=== PATIENT | female | born 1970 | race African-American/Black ===

== ENCOUNTER 2018-09-14 15:01 | Inpatient (IN) | payer OTHER ==
[2018-09-14 17:20] VITALS: BMI 27.4
--- NOTE | 2018-09-14 18:33 | HP ---
CIWA Score Nausea/Vomitin-Mild Nausea/No Vomiting Muscle Tremors: 2 Anxiety: 3 Agitation: 1-Slight > Activity Paroxysmal Sweats: 2 Orientation: 0-Oriented Tacttile Disturbances: 2-Mild Itch/Numbness/Burn Auditory Disturbances: 0-None Visual Disturbances: 0-None Headache: 2-Mild CIWA-Ar Total Score: 13 - Admission Criteria [facility]ASAS Guidelines: Admission for Medically Managed Detox: Requires at least one of the followin. CIWA greater than 12 2. Seizures within the past 24 hours 3. Delirium tremens within the past 24 hours 4. Hallucinations within the past 24 hours 5. Acute intervention needed for co occurring medical disorder 6. Acute intervention needed for co occurring psychiatric disorder 7. Severe withdrawal that cannot be handled at a lower level of care (continued vomiting, continued diarrhea, abnormal vital signs) requiring intravenous medication and/or fluids 8. Admission ROS [facility] Chief Complaint: WITHDRAWAL SYMPTOMS Allergies/Adverse Reactions: Allergies Allergy/AdvReac Type Severity Reaction Status Date / Time No Known Drug Allergies Allergy Verified 09/14/18 17:36 History of Present Illness: 48 Y.O. WOMAN WITH AN EXTENSIVE HISTORY OF ALCOHOL, MARIJUANA AND PCP DEPENDENCE IS HERE SEEKING HER FIRST ADMISSION TO DETOX. DOES NOT HAVE A SIGNIFICANT PERIOD OF SOBRIETY. Exam Limitations: No Limitations - Ebola screening Have you traveled outside of the country in the last 21 days: No Have you had contact with anyone from an Ebola affected area: No Have you been sick,other than usual withdrawal symptoms: No - Review of Systems Constitutional: Diaphoresis, Night Sweats EENT: reports: Nose Congestion Respiratory: reports: No Symptoms reported Cardiac: reports: No Symptoms Reported GI: reports: Nausea : reports: No Symptoms Reported Musculoskeletal: reports: Back Pain Integumentary: reports: No Symptoms Reported Neuro: reports: Numbness (LEFT HAND), Tremors Endocrine: reports: No Symptoms Reported Hematology: reports: No Symptoms Reported Psychiatric: reports: Orientated x3, Depressed Other Systems: Reviewed and Negative Patient History - Patient Medical History Hx Anemia: No Hx Asthma: No Hx Chronic Obstructive Pulmonary Disease (COPD): No Hx Cancer: No Hx Cardiac Disorders: No Hx Congestive Heart Failure: No Hx Hypertension: No Hx Hypercholesterolemia: No Hx Pacemaker: No HX Cerebrovascular Accident: No Hx Seizures: No Hx Dementia: No Hx Diabetes: No Hx Gastrointestinal Disorders: No Hx Liver Disease: No Hx Genitourinary Disorders: No Hx Sexually Transmitted Disorders: No Hx Renal Disease (ESRD): No Hx Thyroid Disease: No Hx Human Immunodeficiency Virus (HIV): No Hx Hepatitis C: No Hx Depression: Yes Hx Suicide Attempt: Yes (Tried to jump off the bridge 2017) Hx Bipolar Disorder: No Hx Schizophrenia: No - Patient Surgical History Past Surgical History: No Hx Neurologic Surgery: No Hx Cataract Extraction: No Hx Cardiac Surgery: No Hx Lung Surgery: No Hx Breast Surgery: No Hx Breast Biopsy: No Hx Abdominal Surgery: No Hx Appendectomy: No Hx Cholecystectomy: No Hx Genitourinary Surgery: No Hx Section: No Hx Orthopedic Surgery: No Anesthesia Reaction: No - PPD History Previous Implant?: Yes Documented Results: Negative w/o proof PPD to be Administered?: Yes - Reproductive History Patient is a Female of Child Bearing Age (11 -55 yrs old): Yes LMP comment: 08/24/2018 Patient : No - Smoking Cessation Smoking history: Never smoked Have you smoked in the past 12 months: No Initiated information on smoking cessation: No 'Breaking Loose' booklet given: 09/14/18 - Substance & Tx. History Hx Alcohol Use: Yes Hx Substance Use: Yes Substance Use Type: Alcohol, Marijuana Hx Substance Use Treatment: No - Substances Abused Alcohol Route: Oral Frequency: Daily Amount used: Liquor 5 pints Age of first use: 15 Date of Last Use: 09/14/18 Marijuana/Hashish Route: Smoking Frequency: Daily Amount used: 1 bag Age of first use: 15 Date of Last Use: 09/13/18 PCP Route: Smoking Frequency: Daily Amount used: 1-2 bags Age of first use: 20 Date of Last Use: 09/14/18 Family Disease History - Family Disease History Family History: Denies Admission Physical Exam S - Vital Signs Vital Signs: Vital Signs - 24 hr 09/14/18 17:17 Temperature 96.5 F L Pulse Rate 78 Respiratory 18 Rate Blood Pressure 136/85 - Physical General Appearance: Yes: Irritable, Anxious HEENTM: Yes: Hearing grossly Normal, Normocephalic, Normal Voice Respiratory: Yes: Chest Non-Tender, Lungs Clear, Normal Breath Sounds, No Respiratory Distress, No Accessory Muscle Use Neck: Yes: No masses,lesions,Nodules Breast: Yes: Breast Exam Deferred Cardiology: Yes: Regular Rhythm, Regular Rate Abdominal: Yes: Normal Bowel Sounds, Non Tender Genitourinary: Yes: Within Normal Limits (NO COMPLAINTS REPORTED) Back: Yes: Normal Inspection Musculoskeletal: Yes: full range of Motion, Gait Steady, Pelvis Stable Extremities: Yes: Within Normal Limits, Normal Inspection, Non-Tender Neurological: Yes: Fully Oriented, Alert, Normal Mood/Affect, Normal Response Integumentary: Yes: Normal Color, Dry, Warm Lymphatic: Yes: Within Normal Limits - Diagnostic (1) Alcohol dependence, uncomplicated Current Visit: Yes Status: Chronic (2) PCP dependence Current Visit: Yes Status: Chronic (3) Marijuana dependence Current Visit: Yes Status: Chronic Cleared for Admission [facility] - Detox or Rehab [facility] Level of Care: Medically Managed Detox Regimen/Protocol: Librium [facility] Breath Alcohol Content Breath Alcohol Content: 0 Urine Pregancy Test - Result Urine Test Results: Negative- NO Line Present Urine Drug Screen - Results Drug Screen Negative: Yes
[2018-09-14] MEDS ORDERED: LOPERAMIDE HCL 2 MG CAPSULE PO PRN (18:39)
[2018-09-14] MEDS ORDERED: ACETAMINOPHEN 325 MG TABLET (FP) PO PRN (18:39)
[2018-09-14] MEDS ORDERED: IBUPROFEN 400 MG TABLET (FP) PO PRN (18:39)
[2018-09-14] MEDS ORDERED: MAGNESIUM HYDROX 2400MG/30ML ORAL SUSPENSION 30 ML CUP PO PRN (18:39)
[2018-09-14] MEDS ORDERED: chlordiazePOXIDE HCL 25 MG CAPSULE PO PRN (18:39)
[2018-09-14] MEDS ORDERED: MAGNESIUM CITRATE 300 ML BOTTLE PO PRN (18:39)
[2018-09-14] MEDS ORDERED: guaiFENesin/D-METHORPHAN HB 10 ML UNIT-DOSE CUPS PO PRN (18:39)
[2018-09-14] MEDS ORDERED: MENTHOL/PHENOL 1 EACH UD MM PRN (18:39)
[2018-09-14] MEDS ORDERED: MAG HYDROX/AL HYDROX/SIMETH 30 ML UNIT-DOSE CUP PO PRN (18:39)
[2018-09-14] MEDS ORDERED: hydrOXYzine PAMOATE 50 MG CAPSULE (FP) PO PRN (18:39)
[2018-09-14] MEDS ORDERED: P-EPHED 60MG/TRIPROLIDI 2.5MG TABLET PO PRN (18:39)
[2018-09-14] MEDS ORDERED: MELATONIN 5 MG TABLETS PO PRN (22:00)
[2018-09-14] MEDS: chlordiazePOXIDE HCL 25 MG CAPSULE PO SCH (22:15)
[2018-09-14] MEDS: THIAMINE HCL 100 MG TABLET (FP) PO SCH (22:15)
[2018-09-15] MEDS: chlordiazePOXIDE HCL 25 MG CAPSULE PO SCH ×4 (06:02→22:31)
[2018-09-15 09:58] LABS: HEMATOCRIT 42.2 % (32.4-45.2); MCH 25.1 pg (25.7-33.7); MCHC 30.8 g/dl (32.0-36.0); MEAN CELL VOLUME 81.4 fl (80-96); MEAN PLT VOLUME 8.5 fl (7.5-11.1); PLATELET COUNT 162 K/MM3 (134-434); RBC 5.19 M/mm3 (3.60-5.2); RDW 15.6 % (11.6-15.6); WHITE BLOOD COUNT 2.9 K/mm3 (4.0-10.0)
[2018-09-15 10:34] LABS: ALBUMIN 3.3 g/dl (3.4-5.0); ALK PHOS 82 U/L (45-117); ANION GAP 6 MMOL/L (8-16); BILIRUBIN,TOTAL 0.4 mg/dL (0.2-1); BLOOD UREA NITROGEN 8 mg/dL (7-18); CALCIUM 8.7 mg/dL (8.5-10.1); CHLORIDE 106 mmol/L (98-107); CO2 30 mmol/L (21-32); CREATININE 0.8 mg/dL (0.55-1.3); GLUCOSE,RANDOM 82 mg/dL (74-106); POTASSIUM 3.8 mmol/L (3.5-5.1); SGOT/AST 13 U/L (15-37); SGPT/ALT 12 U/L (13-61); SODIUM 142 mmol/L (136-145); TOT PROT 6.4 g/dl (6.4-8.2)
[2018-09-15] MEDS: PRENATAL VITAMINS W/ FOLIC ACID TABLET (FP) PO SCH (10:51)
--- NOTE | 2018-09-15 12:56 | EKG ---
Test Reason : Blood Pressure : / mmHG Vent. Rate : 054 BPM Atrial Rate : 054 BPM P-R Int : 224 ms QRS Dur : 086 ms QT Int : 458 ms P-R-T Axes : 056 -10 024 degrees QTc Int : 434 ms SINUS BRADYCARDIA WITH 1ST DEGREE A-V BLOCK OTHERWISE NORMAL ECG NO PREVIOUS ECGS AVAILABLE Confirmed by LUL MCLAUGHLIN MD ([id number]) on 09/15/2018 12:56:15 PM Referred By: Confirmed By:LUL MCLAUGHLIN MD
--- NOTE | 2018-09-15 16:09 | PN ---
S CIWA - CIWA Score Nausea/Vomitin-No Nausea/No Vomiting Muscle Tremors: None Anxiety: 4-Mod. Anxious/Guarded Agitation: 4-Moderately Restless Paroxysmal Sweats: No Perspiration Orientation: 0-Oriented Tacttile Disturbances: 0-None Auditory Disturbances: 0-None Visual Disturbances: 0-None Headache: 2-Mild CIWA-Ar Total Score: 10 [facility] Progress Note (SOAP) Subjective: PATIENT C/O INTERRUPTED SLEEP, ANXIETY, IRRITABILITY AND RESTLESSNESS. Objective: 09/15/18 16:07 Vital Signs Temperature 97.5 F L 09/15/18 14:31 Pulse Rate 58 L 09/15/18 14:31 Respiratory Rate 18 09/15/18 14:31 Blood Pressure 111/58 L 09/15/18 14:31 O2 Sat by Pulse Oximetry (%) Laboratory Tests 09/15/18 09/15/18 09/15/18 07:00 07:00 07:00 WBC 2.9 L RBC 5.19 Hgb 13.0 Hct 42.2 MCV 81.4 MCH 25.1 L MCHC 30.8 L RDW 15.6 Plt Count 162 MPV 8.5 Sodium 142 Potassium 3.8 Chloride 106 Carbon Dioxide 30 Anion Gap 6 L BUN 8 Creatinine 0.8 Creat Clearance w eGFR > 60 Random Glucose 82 Calcium 8.7 Total Bilirubin 0.4 AST 13 L ALT 12 L Alkaline Phosphatase 82 Total Protein 6.4 Albumin 3.3 L RPR Titer HIV 1&2 Antibody Screen Negative HIV P24 Antigen Negative 09/15/18 07:00 WBC RBC Hgb Hct MCV MCH MCHC RDW Plt Count MPV Sodium Potassium Chloride Carbon Dioxide Anion Gap BUN Creatinine Creat Clearance w eGFR Random Glucose Calcium Total Bilirubin AST ALT Alkaline Phosphatase Total Protein Albumin RPR Titer Nonreactive HIV 1&2 Antibody Screen HIV P24 Antigen PE: ALERT AND ORIENTED X 3 SKIN WARM AND DRY NEURO CN 1-X11 GROSSLY INTACT, +PERRLA EXT FULL ROM, NO VISIBLE TREMORS +IRRITABILITY Assessment: 09/15/18 16:09 WITHDRAWAL SX Plan: CONTINUE DETOX ENCOURAGE ORAL FLUIDS CONTINUE TO MONITOR CLINICALLY
[2018-09-15] MEDS: THIAMINE HCL 100 MG TABLET (FP) PO SCH (22:31)
[2018-09-16] MEDS: chlordiazePOXIDE HCL 25 MG CAPSULE PO SCH ×3 (05:31→17:18)
[2018-09-16] MEDS: PRENATAL VITAMINS W/ FOLIC ACID TABLET (FP) PO SCH (10:04)
--- NOTE | 2018-09-16 13:59 | CONSULT ---
[facility] Psychiatric Consult - Data Date of interview: 09/16/18 Admission source: [facility] Identifying data: Patient is a 48 year old single female , mother of one, unemployed, and domiciled. This is patient's first admission to detox at [facility]. Patient admitted to for alcohol, PCP, amd marijuana dependence. Substance Abuse History: Smoking Cessation. Smoking history: Never smoked. Have you smoked in the past 12 months: No. Initiated information on smoking cessation: No. 'Breaking Loose' booklet given: 09/14/18. - Substance & Tx. History. Hx Alcohol Use: Yes. Hx Substance Use: Yes. Substance Use Type: Alcohol, Marijuana. Hx Substance Use Treatment: No. - Substances Abused. Alcohol. Route: Oral. Frequency: Daily. Amount used: Liquor 5 pints. Age of first use: 15. Date of Last Use: 09/14/18. Marijuana/Hashish. Route: Smoking. Frequency: Daily. Amount used: 1 bag. Age of first use: 15. Date of Last Use: 09/13/18. PCP. Route: Smoking. Frequency: Daily. Amount used : 1-2 bags. Age of first use: 20. Date of Last Use: Medical History: Denies. Endorses good health. Psychiatric History: Patient presents as irritable and agitated. Patient reports one psychiatric hospitalization at [facility] last year for depression. States she was receiving outpatient psychiatric care at a clinic in [place] but did not like the psychiatrist so she discontinued treatment. She denies taking medications at this time. Patient denies h/o psychotic symptoms although appears to be internally preoccupied. As per pharmacy claims patient has been prescribed risperdal 3mg daily. Most recent prescription was sent to patient's pharmacy on 06/23/18. Patient reports one suicide attempt in 2018 by jumping off a bridge but stated she was under the influence. She currently denies suicidal and homicidal ideation. Physical/Sexual Abuse/Trauma History: denies. Mental Status Exam - Mental Status Exam Alert and Oriented to: Time, Place, Person Cognitive Function: Good Patient Appearance: Well Groomed Mood: Irritable Affect: Constricted Patient Behavior: Agitated Speech Pattern: Clear Voice Loudness: Normal Thought Process: Thought Blocking (Denies, but appears to be internally preoccupied. ) Thought Disorder: Present Hallucinations: Denies Suicidal Ideation: Denies Homicidal Ideation: Denies Insight/Judgement: Poor Sleep: Fair Appetite: Fair Muscle strength/Tone: Normal Gait/Station: Normal Psychiatric Findings - Problem List ([place] 1, 2,3) (1) Schizophrenia Current Visit: No Status: Suspected (2) Substance induced mood disorder Current Visit: Yes Status: Acute (3) Alcohol dependence with uncomplicated withdrawal Current Visit: Yes Status: Acute (4) Marijuana dependence Current Visit: Yes Status: Chronic (5) PCP dependence Current Visit: Yes Status: Chronic - Initial Treatment Plan Initial Treatment Plan: Psychoeducation provided. Detoxification in progress. Observation. Patient refuses to resume medications. Denies accepting psychtropic medications.
[2018-09-16] MEDS: SENNOSIDES/DOCUSATE COMBO (SENNA PLUS) TABLET (UD) PO SCH ×2 (15:00→22:03)
--- NOTE | 2018-09-16 15:27 | PN ---
S CIWA - CIWA Score Nausea/Vomitin-No Nausea/No Vomiting Muscle Tremors: None Anxiety: 4-Mod. Anxious/Guarded Agitation: 0-Normal Activity Paroxysmal Sweats: 3 Orientation: 0-Oriented Tacttile Disturbances: 2-Mild Itch/Numbness/Burn Auditory Disturbances: 0-None Visual Disturbances: 0-None Headache: 3-Moderate CIWA-Ar Total Score: 12 S Progress Note (SOAP) Subjective: Stomach Cramping, Body Aches, Constipation, Anxious, H/A, Sweating. Objective: PATIENT A & O X 3, OBSERVED AMBULATING ON UNIT. IN NO ACUTE DISTRESS. 09/16/18 15:24 Vital Signs Temperature 96.4 F L 09/16/18 13:53 Pulse Rate 70 09/16/18 13:53 Respiratory Rate 18 09/16/18 13:53 Blood Pressure 117/70 09/16/18 13:53 O2 Sat by Pulse Oximetry (%) Laboratory Tests 09/15/18 09/15/18 09/15/18 07:00 07:00 07:00 WBC 2.9 L RBC 5.19 Hgb 13.0 Hct 42.2 MCV 81.4 MCH 25.1 L MCHC 30.8 L RDW 15.6 Plt Count 162 MPV 8.5 Sodium 142 Potassium 3.8 Chloride 106 Carbon Dioxide 30 Anion Gap 6 L BUN 8 Creatinine 0.8 Creat Clearance w eGFR > 60 Random Glucose 82 Calcium 8.7 Total Bilirubin 0.4 AST 13 L ALT 12 L Alkaline Phosphatase 82 Total Protein 6.4 Albumin 3.3 L RPR Titer Hep C Ab Diagnostic HIV 1&2 Antibody Screen Negative HIV P24 Antigen Negative 09/15/18 09/15/18 07:00 07:00 WBC RBC Hgb Hct MCV MCH MCHC RDW Plt Count MPV Sodium Potassium Chloride Carbon Dioxide Anion Gap BUN Creatinine Creat Clearance w eGFR Random Glucose Calcium Total Bilirubin AST ALT Alkaline Phosphatase Total Protein Albumin RPR Titer Nonreactive Hep C Ab Diagnostic 0.1 HIV 1&2 Antibody Screen HIV P24 Antigen LABS NOTED. Assessment: 09/16/18 15:24 WITHDRAWAL SYMPTOMS. LEUKOPENIA. 09/16/18 15:26 Plan: CONTINUE DETOX. INCREASE DAILY PO FLUID INTAKE. COLACE, SENNA FOR CONSTIPATION.
[2018-09-16] MEDS: THIAMINE HCL 100 MG TABLET (FP) PO SCH (22:03)
[2018-09-16 22:23] VITALS: BP 125/86; PULSE 94; TEMP 97.7
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
[2018-09-16] MEDS ORDERED: chlordiazePOXIDE 5 MG CAPSULE PO SCH (23:00)
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
--- NOTE | 2018-09-17 02:23 | HP ---
Psychiatrist Admission - Data Vital Signs: Vital Signs - 24 hr 09/16/18 09/16/18 09/16/18 03:30 06:56 09:46 Temperature 97.5 F L 97.3 F L Pulse Rate 59 L 78 Respiratory 18 18 16 Rate Blood Pressure 124/79 130/60 09/16/18 09/16/18 09/16/18 13:53 17:54 22:22 Temperature 96.4 F L 97.3 F L 97.7 F Pulse Rate 70 61 94 H Respiratory 18 18 19 Rate Blood Pressure 117/70 118/69 125/86 Allergies/Adverse Reactions: Allergies Allergy/AdvReac Type Severity Reaction Status Date / Time No Known Drug Allergies Allergy Verified 09/14/18 17:36 Psychiatric Findings - Problem List ([place] 1, 2,3) (1) Alcohol dependence with uncomplicated withdrawal Status: Chronic (2) Substance induced mood disorder Status: Chronic (3) Alcohol dependence, uncomplicated Status: Chronic (4) Marijuana dependence Status: Chronic (5) PCP dependence Status: Chronic (6) Schizophrenia Status: Chronic
--- NOTE | 2018-09-17 10:55 | PN ---
S Progress Note Note: Received call from the Nurse about patient"s disruptive,agressive behavior, threatening staff and other patients.Patient was transferred to ER of [facility] for safety,further evaluation,stabilization .
[2018-09-17] MEDS ORDERED: chlordiazePOXIDE HCL 10 MG CAPSULE PO SCH (23:00)
== END 2018-09-16 11:35 | DRG 775 ==
LOC: YASAS 15:01 → Y6N 18:38
PROC: HZ2ZZZZ Detoxification Services for Substance Abuse Treatment (ICD-10-PCS; principal; 2018-09-14)
DX: F10.230 Alcohol dependence with withdrawal, uncomplicated (principal); F12.20 Cannabis dependence, uncomplicated; F16.20 Hallucinogen dependence, uncomplicated; F19.24 Other psychoactive substance dependence with psychoactive substance-induced mood disorder; F20.9 Schizophrenia, unspecified; D72.819 Decreased white blood cell count, unspecified; Z91.5 Personal history of self-harm
CPT/HCPCS: 36415; 80053; 85027; 86593; 86803; 87389; 93005; 93010

== ENCOUNTER 2018-09-17 07:31 | Emergency (ER) | payer OTHER ==
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
[2018-09-17 07:55] VITALS: BP 130/76; PULSE 84; TEMP 98.2; BMI 26.6
--- NOTE | 2018-09-17 08:27 | PDOC ---
Attending Attestation - Resident Resident Name: Karen Barrios - ED Attending Attestation I have performed the following: I have examined & evaluated the patient, The case was reviewed & discussed with the resident, I agree w/resident's findings & plan, Exceptions are as noted - HPI HPI: 09/17/18 09:14 48yo F hx PSA presents to the ED from [facility] for med clearance prior to going back to [facility]. Pt has no medical complaints. Denies f/c, cp, sob, abd pain, headache, focal weakness/numbness, abd pain, LE edema. - Physicial Exam PE: 09/17/18 09:14 GENERAL: Awake, alert, and fully oriented, in no acute distress HEAD: No signs of trauma EYES: PERRLA, EOMI, sclera anicteric, conjunctiva clear ENT: Auricles normal inspection, hearing grossly normal, nares patent, oropharynx clear without exudates. Moist mucosa NECK: Normal ROM, supple, no lymphadenopathy, JVD, or masses LUNGS: Breath sounds equal, clear to auscultation bilaterally. No wheezes, and no crackles HEART: Regular rate and rhythm, normal S1 and S2, no murmurs, rubs or gallops ABDOMEN: Soft, nontender, normoactive bowel sounds. No guarding, no rebound. No masses EXTREMITIES: Normal range of motion, no edema. No clubbing or cyanosis. No cords, erythema, or tenderness NEUROLOGICAL: Normal speech, cranial nerves intact, negative pronator drift, 5/ 5 strength in all 4 extremities, normal sensation to light touch in all 4 extremities, normal cerebellar exam, normal gait, normal reflexes and tone SKIN: Warm, Dry, normal turgor, no rashes or lesions noted. - Medical Decision Making 09/17/18 08:25 48yo F presents to the ED for medical clearance from [facility] emergency department. Pt was at detox for PSA at [facility], was due to be transferred to a facility in the [place] for rehab. Yesterday, while at [facility], she became combative and made threats. She was sent to [facility] ED for psych clearance. Pt was cleared by psych and accepted back to [facility] by ANKUR Reddy per [facility] paperwork Pt was brought to our ED for medical clearance? Here pt has no medical complaints, normal vitals and normal exam. Plan to get pt back to [facility] for rehab. We are unable to send pt directly to rehab as she must be sent from detox per [facility]. Plan has been explained to patient by myself, Dr. Barrios, registration, and the charge nurse. Despite this, she has become quite agitated, cursing and stating "I need to know if I am still going to the rehab today" Dr. Barrios is currently on hold with [facility] attempting to arrange the transfer back. 09/17/18 08:43 Pt on phone loudly stating "this place don't care, they're all racist" Redirected pt, informed her were are trying to help her 09/17/18 09:08 Per [facility], pt can go straight to rehab Case management here involved, will try to see if pt still has her bed at facility Pt informed of plan 09/17/18 09:[address] Barrios has arranged for [facility] facility to pick pt up from the ED Pt agitated and demanding TB results from tests done at [facility]. Informed her that she would need to get them from medical records. Despite attempts to talk pt down, she continued to be verbally aggressive. Security called to the bedside. Pt updated about plan for rehab to pick her up. 09/17/18 11:03 Pt picked up by rehab facility
== END 2018-09-17 11:23 | disposition home or self-care (01) ==
LOC: JER 07:31
DX: Z71.41 Alcohol abuse counseling and surveillance of alcoholic (principal)
CPT/HCPCS: 99281-25

== ENCOUNTER 2019-01-12 13:54 | Inpatient (IN) | payer OTHER | END 2019-01-20 09:55 | disposition home or self-care (01) | LOC: YASAS 13:54 → Y3E 16:48 ==